=== PATIENT | male | born 1995 | race Caucasian/White ===

== ENCOUNTER 2017-12-14 09:30 | Emergency (ER) | END 2017-12-14 11:17 | disposition home or self-care (01) ==

== ENCOUNTER 2018-07-09 03:00 | Emergency (ER) | payer BC ==
[~2018-07-09] VITALS: Ht 172.7 cm; Wt 67.4 kg
[~2018-07-09 03:00] MED LIST: IBUP-1542 PO
[2018-07-09 03:05] VITALS: BP 132/79; PULSE 77; RESP 18; Ht 172.7 cm; Wt 67.4 kg
--- NOTE | 2018-07-09 03:44 | ERD ---
ER Documentation Chief Complaint Chief Complaint diarrhea x 3 days HPI This is a 22-year-old male presents to emerge department with complaints of diarrhea for about 3 days. Denies any changes in diet. Denies headache, head injury, loss of consciousness, dizziness, neck pain, neck stiffness, throat pain, difficulty swallowing, difficulty breathing lying flat, shoulder pain, chest pain, back pain, abdominal pain, nausea, vomiting, constipation, urinary symptoms, loss of bowel and bladder control, trauma, injury, falls, difficulty walking due to pain, numbness or tingling sensation, calf pain, recent travel, recent major surgery in the last 3 weeks, calf pain, recent long travel, recent exposure to any illness, recent antibiotic use in the last 3 months, fever, chills, seizures. Past medical history: Surgical history: Social: Denies smoking, use of alcoholic beverages, use of illegal drugs. ROS All systems reviewed and are negative except as per history of present illness. Medications Home Meds Active Scripts Loperamide Hcl* (Imodium*) 2 Mg Capsule, 2 MG PO .AFTER EA LOOSE BM PRN for DIARRHEA, #10 TAB Prov:PASILABAN,NORMAAR F 07/09/18 Famotidine* (Pepcid*) 20 Mg Tablet, 20 MG PO DAILY for 30 Days, TAB Prov:PASILABAN,KLAR F 07/09/18 Ondansetron Hcl* (Zofran*) 4 Mg Tablet, 4 MG PO Q8H PRN for NAUSEA AND/OR VOMITING, #30 TAB Prov:PASILABAN,KLAR F 07/09/18 Acetaminophen* (Tylophen*) 500 Mg Capsule, 1 CAP PO Q6H PRN for PAIN AND OR ELEVATED TEMP, #20 CAP Prov:PASILABAN,KLAR F 07/09/18 Ibuprofen* (Motrin*) 600 Mg Tab, 600 MG PO Q6, #30 TAB Prov:CHICO WATERS PA-C 12/14/17 Allergies Allergies: Coded Allergies: No Known Drug Allergies (Verified Allergy, Unknown, 07/09/18) PMhx/Soc History of Surgery: Yes (appendectomy) Anesthesia Reaction: No Hx Neurological Disorder: No Hx Respiratory Disorders: No Hx Cardiac Disorders: No Hx Psychiatric Problems: No Hx Miscellaneous Medical Probl: No Hx Alcohol Use: Yes (occassional) Hx Substance Use: No Hx Tobacco Use: No Smoking Status: Never smoker Physical Exam Vitals Physical Exam Const: No acute distress Head: Atraumatic Eyes: Normal Conjunctiva ENT: Normal External Ears, Nose and Mouth. Neck: Full range of motion. No meningismus. Resp: Clear to auscultation bilaterally Cardio: Regular rate and rhythm, no murmurs Abd: Soft, non tender, non distended. Normal bowel sounds. Negative Sanders sign. Negative Evelia sign (heel jar test). Negative psoas sign. Negative Rovsing sign. Able to jump 10 times without developing abdominal pain. No CVA tenderness. Ambulatory with steady gait and without pain to abdomen. Skin: No petechiae or rashes. Color appears normal for ethnicity. No signs of severe dehydration. Back: No midline or flank tenderness. No CVA tenderness. Ext: No cyanosis, or edema Neur: Awake and alert. No neurological deficits. Psych: Normal Mood and Affect Procedures/MDM Diagnostic tests: Clinical exam. Treatment: Not applicable. Re-evaluation: Not applicable. Differential diagnosis I have low suspicion for severe dehydration, pancreatitis, cholecystitis, difficult colitis, diverticulitis with abscess, appendicitis, bowel obstruction, mesenteric ischemia, septic stone. Final diagnosis: Diarrhea Prescription: Loperamide. Tylenol. Zofran. Pepcid. Follow-up with PCP in the next 24-48 hours. Come back here in the emergency department for any new symptoms or any worsening symptoms. All questions and concerns were answered. Patient and family members verbalized understanding and agreed with plan of care. Hemodynamically stable on discharge. Departure Diagnosis: Primary Impression: Diarrhea Condition: Stable Additional Instructions: Follow-up with PCP in the next 24-48 hours. Come back here in the emergency department for any new symptoms or any worsening symptoms. GAMALIEL MENDEZ Jul 09, 2018 03:44
[2018-07-09] MEDS ORDERED: ACET500C5 PO (03:45)
[2018-07-09] MEDS ORDERED: FAMO-96 PO (03:45)
[2018-07-09] MEDS ORDERED: ONDA4TAB8 PO (03:45)
[2018-07-09] MEDS ORDERED: LOPE2CAP PO (03:46)
== END 2018-07-09 04:12 | disposition home or self-care (01) ==
LOC: FTE 03:00
DX: R19.7 Diarrhea, unspecified (principal)
CPT/HCPCS: 99283